=== PATIENT | male | born 1965 | race Caucasian/White ===

== ENCOUNTER 2018-09-10 17:36 | Emergency (ER) | payer SELFPAY ==
--- NOTE | 2018-09-10 18:17 | EDM.PDOC ---
ED HPI GENERAL MEDICAL PROBLEM - General Chief Complaint: Lower Extremity Injury/Pain Stated Complaint: L KNEE/THIGH INJURY Time Seen by Provider: 09/10/18 17:52 Source of Information: Reports: Patient History Limitations: Reports: No Limitations - History of Present Illness INITIAL COMMENTS - FREE TEXT/NARRATIVE: The patient presents with left distal, lateral thigh pain. He was walking down his steps and stepped on a shoe and felt severe pain in that area. He can walk but is difficult. He is holding his leg strait. He has no other injuries. He said back in the 80s he had a laproscopic procedure done on that knee. Onset: Sudden Duration: Minutes: Location: Reports: Lower Extremity, Left (distal lateral thigh) Quality: Reports: Sharp Severity: Moderate Improves with: Reports: Immobilization Worsens with: Reports: Movement Context: Reports: Trauma (stepped on a shoe and his his leg) Associated Symptoms: Reports: No Other Symptoms Left Thigh Pain Score (Numeric/FACES): 8 - Related Data Allergies Allergy/AdvReac Type Severity Reaction Status Date / Time No Known Allergies Allergy Verified 09/10/18 18:06 Home Meds: Home Meds . [No Known Home Meds] 09/10/18 [History] Past Medical History Musculoskeletal History: Reports: Fracture - Infectious Disease History Infectious Disease History: Reports: Chicken Pox, Measles - Past Surgical History Musculoskeletal Surgical History: Reports: Arthroscopic Knee Social & Family History - Tobacco Use Smoking Status *Q: Never Smoker Second Hand Smoke Exposure: No - Caffeine Use Caffeine Use: Reports: Soda, Tea - Recreational Drug Use Recreational Drug Use: No Review of Systems - Review of Systems Review Of Systems: See Below Constitutional: Reports: No Symptoms Eyes: Reports: No Symptoms Ears: Reports: No Symptoms Nose: Reports: No Symptoms Mouth/Throat: Reports: No Symptoms Respiratory: Reports: No Symptoms Cardiovascular: Reports: No Symptoms GI/Abdominal: Reports: No Symptoms Genitourinary: Reports: No Symptoms Musculoskeletal: Reports: Other (left lateral distal thigh pain and swelling) ED EXAM, GENERAL - Physical Exam Exam: See Below Exam Limited By: No Limitations General Appearance: Alert, No Apparent Distress Ears: Normal External Exam Nose: Normal Inspection Head: Atraumatic, Normocephalic Neck: Normal Inspection Respiratory/Chest: No Respiratory Distress Extremities: Other (Pain upon palpation with edema to the distal lateral left thigh. Good sensation and pulses distally. The patient can lift his lef off ot the bed. His ligaments are stable.) Course - Vital Signs Last Recorded V/S: Last Vital Signs Temp 97.2 F 09/10/18 17:40 Pulse 56 L 09/10/18 17:40 Resp 16 09/10/18 17:40 BP 132/87 09/10/18 17:40 Pulse Ox 96 09/10/18 17:40 - Orders/Labs/Meds Orders: Active Orders 24 hr Category Date Time Status Knee Min 4V Lt [CR] Stat Exams 09/10/18 17:56 Taken Durable Medical Equipment for Discharge [DME for Oth 09/10/18 18:26 Ordered Discharge] [COMM] Stat - Re-Assessments/Exams Free Text/Narrative Re-Assessment/Exam: 09/10/18 18:17 I ordered an x-ray of his knee to start with. 09/10/18 18:28 His x-ray looks good. I will get him a knee immobilizer and follow up with Dr Zamora. Departure - Departure Time of Disposition: 18:30 Disposition: Home, Self-Care 01 Condition: Good Clinical Impression: Muscle strain of left thigh Qualifiers: Encounter type: initial encounter Qualified Code(s): S76.912A - Strain of unspecified muscles, fascia and tendons at thigh level, left thigh, initial encounter - Discharge Information *PRESCRIPTION DRUG MONITORING PROGRAM REVIEWED*: Not Applicable *COPY OF PRESCRIPTION DRUG MONITORING REPORT IN PATIENT KAITY: Not Applicable Referrals: PCP,None [Primary Care Provider] - Javad Zamora MD [Physician] - 1 Week Forms: ED Department Discharge Additional Instructions: Ice the affected area for 15 minutes 3 times per day for 2 days. Take motrin or tylenol for pain. Elevate your leg as much as you can for 2 days. Wear the immobilizer for support and comfort. Follow up with Dr Zamora in about a week. Please return if you are worse. - My Orders Last 24 Hours: My Active Orders 09/10/18 17:56 Knee Min 4V Lt [CR] Stat 09/10/18 18:26 Durable Medical Equipment for Discharge [DME for Discharge] [COMM] Stat - Assessment/Plan Last 24 Hours: My Active Orders 09/10/18 17:56 Knee Min 4V Lt [CR] Stat 09/10/18 18:26 Durable Medical Equipment for Discharge [DME for Discharge] [COMM] Stat
--- NOTE | 2018-09-11 06:55 | CR ---
Left knee: Four views of the left knee were obtained. Comparison: No prior knee exam. Spur noted at the attachment of the quadriceps tendon to the patella. Small articular spurs are noted within the patella. Medial and lateral joint compartments are maintained in height. No joint effusion is seen. No acute fracture or other bony abnormality is appreciated. Impression: 1. Patellar findings as noted above. Nothing acute is seen on left knee exam. Diagnostic code #2
== END 2018-09-10 18:50 | disposition home or self-care (01) ==
LOC: JD.ED 17:36
DX: S76.912A Strain of unspecified muscles, fascia and tendons at thigh level, left thigh, initial encounter (principal); W10.9XXA Fall (on) (from) unspecified stairs and steps, initial encounter
CPT/HCPCS: 73564-26-LT; 73564-LT; 99282; 99284-25